=== PATIENT | female | born 1995 | race African-American/Black ===

== ENCOUNTER 2019-11-23 18:28 | Emergency (ER) | payer OTHER ==
[~2019-11-23] VITALS: Ht 160 cm; Wt 72.6 kg
[2019-11-23 18:33] VITALS: Ht 160 cm; Wt 72.6 kg
[2019-11-23 19:39] VITALS: BP 120/89
== END 2019-11-23 19:40 | disposition home or self-care (01) ==
LOC: ED 18:28
DX: S90.112A Contusion of left great toe without damage to nail, initial encounter (principal); W04.XXXA Fall while being carried or supported by other persons, initial encounter; Y93.43 Activity, gymnastics; Y92.89 Other specified places as the place of occurrence of the external cause; Y99.8 Other external cause status